=== PATIENT | female | born 2000 | race African-American/Black ===

== ENCOUNTER 2022-07-03 11:28 | Outpatient (CLI) | payer MEDICAID, SELFPAY ==
--- OUTSIDE RECORDS SUMMARY | 2022-07-04 03:12 | XMS_ITS ---
:2000 Author Organization [facility] ury Address [address] [place] [address] Care Team Providers Name Role Phone Jelena Frias Unavailable Unavailable PROBLEMS Unknown Problems ALLERGIES No Information IMMUNIZATIONS No Known Immunizations SOCIAL HISTORY Never Assessed REASON FOR REFERRAL FUNCTIONAL STATUS PLAN OF CARE VITAL SIGNS MEDICATIONS Unknown Medications PROCEDURES No Known procedures RESULTS No Results REASON FOR VISIT Insurance Providers [facility] Member Patient Patient Patient Patient Patient Subscriber Subscriber Subscriber Group Insurance Plan Plan Plan Plan ID Relationship Address Phone Name Date of ID Name Date of No Type Insurance Insurance Insurance Coverage to Subscriber Address Phone Name Dates Ucare [phone] Ucare self [place] [id number] [address] [id number] [place] [id number] 2021
== END 2022-07-03 11:29 | disposition home or self-care (01) ==
LOC: AMB 07-04 03:09
PROVIDERS: Visit Provider Emergency Medicine
DX: R45.851 Suicidal ideations (principal)
CPT/HCPCS: A0425; A0429

== ENCOUNTER 2022-07-03 11:47 | Emergency (ER) | payer MEDICAID, SELFPAY ==
[2022-07-03 12:00] VITALS: BP 126/94; PULSE 100; RESP 20; TEMP 36.1; O2SAT 95
--- NOTE | 2022-07-03 12:43 | ED_ITS ---
HPI - General Adult General Date Seen: 07/03/22 Chief complaint: Psychiatric Problem/Disorder Stated complaint: Mental Health Time Seen by Provider: 07/03/22 12:07 Source: patient Mode of arrival: ambulatory Limitations: no limitations History of Present Illness HPI narrative: Patient is a 22-year-old [employer] student here with concerns of depression and suicidality. She reports longstanding difficulties with depression. She has a psychiatrist who she has been seeing for a little under year. She is on multiple medications, recent diagnosis of ADD and addition of Adderall which she says has been somewhat helpful. Duloxetine was started about 4 days ago. She has a history of previous admissions for mental health. She is from [place], she has an aunt who she is somewhat close to but no other close family. She does have a friend [place] who she confides in. 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. She notes that she is having difficulty participating in classes because she has trouble getting out of bed. She is very tearful and verbose as she talks about her difficulties wanting to stay alive. She says she does not understand why she is being forced to stay alive when she very much does not want to be alive. She does not understand the point. She says that nothing ever gets any better. She thought that things would get better when she got out of the house and moved to college but she says nothing is better. Last night, she says that she was thinking about an overdose, she had been researching whether not she could overdose on her duloxetine but realized that s he only had a 30 day supply, and did not think that we 100 mg was enough. She became concerned that that would kill her but might only harm her and she did not want to take that risk. She does have a cat, she describes feeling like someone else would take better care of her cat. She describes having difficulty with even small daily cares such as showering and basic hygiene. Related Data Home Medications Medication Instructions Recorded Confirmed clonidine HCl 0.1 mg tablet mg 07/03/22 dextroamphetamine-amphetamine 10 07/03/22 mg tablet dextroamphetamine-amphetamine ER PO 07/03/22 15 mg 24hr capsule,extend release (Adderall XR) docusate sodium 100 mg capsule mg PO 07/03/22 duloxetine 20 mg capsule,delayed mg PO 07/03/22 release hydroxyzine HCl 25 mg tablet mg 07/03/22 lurasidone 20 mg tablet (Latuda) mg 07/03/22 norgestimate-ethinyl estradiol tab 07/03/22 0.18 mg/0.215mg/0.25mg-35 mcg(28)tablet (Tri-Estarylla) Allergies Allergy/AdvReac Type Severity Reaction Status Date / Time No Known Drug Allergies Allergy Verified 07/03/22 12:07 Review of Systems Status of ROS: Reports: 6 or more systems reviewed and unremarkable except as noted in History and below PFSH [facility] Social History Smoking Status: Never smoker Do you use any of these nicotine containing products: None Second hand tobacco smoke exposure: No How often do you have a drink containing alcohol: 2-4 times a month How many standard drinks containing alcohol do you have on a typical day: 3 or 4 How often do you have six or more drinks on one occasion: Never AUDIT-C Alcohol total score: 3 Non-prescribed substance use: marijuana (any form) Non-prescribed substance use details: smokes marijuana 3x/week service: No Exam Narrative: Exam Narrative: Vital signs as noted above. In general, an alert, tearful young woman. Minimal eye contact. She is in paper close, she is wearing a mask, within these boundaries, does appear well groomed. Head: Normocephalic, atraumatic. Eyes: Pupils are equal reactive. Extraocular movements are full. Conjunctivae are normal. ENT: Mucous membranes are moist. Throat is normal. Neck: Supple without lymphadenopathy. Heart: Regular rate and rhythm. No murmur or rub. Lungs: Clear bilaterally. No increased work of breathing, crackles or wheezes. Extremities: Well perfused. Neurologic: Patient is alert and oriented to person and place. Speech is fluent. Face is symmetric. Moves all extremities equally. Affect: Tearful. Skin: Warm and dry. Well perfused. Const: Vital Signs, click to edit/add: Vital Signs - 24 hr 07/03/22 12:00 Temperature 97 F L Pulse Rate [Pulse Oximeter] 100 Respiratory Rate 20 Blood Pressure [Le ft Upper Arm] 126/94 H Pulse Oximetry 95 Oxygen Delivery Me thod Room Air Documenting provider has reviewed patient's vital signs: yes Course Course Hospital Course: After speaking with the patient, my sense is that she has significant depression and at risk behaviors for suicidality. Will have her speak with telehealth as well. At this time, my sense is that she will likely need inpatient placement. Labs are notable for positive THC in the urine. She has positive amphetamines as well though she is on Adderall. Otherwise, CBC is normal, metabolic panel is unremarkable. UA is negative. test is negative. Alcohol, acetaminophen and salicylate negative. Patient has been cooperative and comfortable in the ER. She did speak with DEC was in agreement that an inpatient placement would be reasonable and appropriate at this time. Awaiting placement. Patient has been accepted at [facility]. Placed on a 72 hour hold per their request, but patient does agree with inpatient placement at this time. She also has given me permission to give an update to Kaur Eden, at [facility]. Awaiting transport. Vital Signs Vital signs: Initial Vital Signs Temperature 97 F L 07/03/22 12:00 Temperature Source Temporal Artery Scan 07/03/22 12:00 Pulse Rate 100 07/03/22 12:00 Pulse Rhythm 07/03/22 12:00 Respiratory Rate 20 07/03/22 12:00 Blood Pressure 126/94 H 07/03/22 12:00 Blood Pressure Mean 104 07/03/22 12:00 Blood Pressure Position Sitting 07/03/22 12:00 Pulse Oximetry 95 07/03/22 12:00 Oxygen Delivery Method 07/03/22 12:00 Vital Signs Temperature 97 F L 07/03/22 12:00 Pulse Rate 100 07/03/22 12:00 Respiratory Rate 20 07/03/22 12:00 Blood Pressure 126/94 H 07/03/22 12:00 Pulse Oximetry 95 07/03/22 12:00 Oxygen Delivery Method 07/03/22 12:00 Temperature 97 F L 07/03/22 12:00 Pulse Rate 100 07/03/22 12:00 Respiratory Rate 20 07/03/22 12:00 Blood Pressure 126/94 H 07/03/22 12:00 Pulse Oximetry 95 07/03/22 12:00 Oxygen Delivery Method 07/03/22 12:00 Medical Decision Making Lab Data Labs: Lab Results 07/03/22 07/03/22 07/03/22 Range/Units 13:10 13:10 13:10 WBC 5.20 (4.50-11.00) K/uL RBC 4.90 (4.00-5.20) m/uL Hgb 13.7 (12.0-16.0) gm/dL Hct 42.1 (33.0-51.0) % MCV 86 (80-100) fL MCH 28 (26-34) pg MCHC 33 (32-36) gm/dL RDW Coeff of Donnell 12.9 (11.5-15.5) % Plt Count 433 (140-440) K/uL Neut % (Auto) 44.4 (42.0-72.0) % Lymph % (Auto) 45.4 H (20-44) % Ramsey % (Auto) 8.8 (0.0-11.0) % Eos % (Auto) 0.8 (0.0-7.0) % Baso % (Auto) 0.4 (0.0-3.0) % Neut # (Auto) 2.31 (1.7-7.0) K/uL Lymph # (Auto) 2.40 (0.90-2.90) K/uL Ramsey # (Auto) 0.50 (0.00-0.90) K/UL Eos # (Auto) 0.04 (0.00-0.50) K/uL Baso # (Auto) 0.02 (0.00-0.30) K/uL Sodium 138 (135-149) mmol/L Potassium 4.0 (3.6-5.1) mmol/L Chloride 104 (96-114) mmol/L Carbon Dioxide 30 (20-32) mmol/L BUN 8 (5-24) mg/dL Creatinine 0.7 (0.5-1.5) mg/dL Estimated GFR 125 ml/min Glucose 115 (60-115) mg/dL Calcium 9.5 (8.4-10.6) mg/dL Urine Color Dark yellow (Yellow) Urine Appearance Slightly Cloudy A (Clear) Urine pH 7.0 (5.0-8.5) Ur Specific [place] 1.020 (1.000-1.030) Urine Protein Negative (Negative) Urine Glucose (UA) Negative (Negative) Urine Ketones Negative (Negative) Urine Blood Negative (Negative) Urine Nitrite Negative (Negative) Urine Bilirubin Negative (Negative) Urine Urobilinogen 0.2 (0.2-1.0) Ur Leukocyte Esterase Negative (Negative) Urine RBC 0-2 (0-2) Urine WBC 0-2 (0-5) Ur Squamous Epith Cells Moderate A (None-Few) Urine Bacteria Moderate A (None) Urine Mucus Few A (None) Urine HCG, Qual Negative (Negative) Salicylates (1.0-10) mg/dL Urine Opiates Screen (Negative) Ur Oxycodone Screen (Negative) Urine Methadone Screen (Negative) Ur Propoxyphene Screen (Negative) Acetaminophen < 10.0 L (10.0-30.0) ug/mL Ur Barbiturates Screen (Negative) U Tricyclic Antidepress (Negative) Ur Phencyclidine Scrn (Negative) Ur Amphetamines Screen (Negative) U Methamphetamines Scrn (Negative) U Benzodiazepines Scrn (Negative) Urine Cocaine Screen (Negative) U Marijuana (THC) Screen (Negative) Ur Drug Screen Comment Ethyl Alcohol (0.01-0.03) % SARS-CoV-2 (PCR) (Negative) 07/03/22 07/03/22 07/03/22 Range/Units 13:10 13:10 13:14 WBC (4.50-11.00) K/uL RBC (4.00-5.20) m/uL Hgb (12.0-16.0) gm/dL Hct (33.0-51.0) % MCV (80-100) fL MCH (26-34) pg MCHC (32-36) gm/dL RDW Coeff of Donnell (11.5-15.5) % Plt Count (140-440) K/uL Neut % (Auto) (42.0-72.0) % Lymph % (Auto) (20-44) % Ramsey % (Auto) (0.0-11.0) % Eos % (Auto) (0.0-7.0) % Baso % (Auto) (0.0-3.0) % Neut # (Auto) (1.7-7.0) K/uL Lymph # (Auto) (0.90-2.90) K/uL Ramsey # (Auto) (0.00-0.90) K/UL Eos # (Auto) (0.00-0.50) K/uL Baso # (Auto) (0.00-0.30) K/uL Sodium (135-149) mmol/L Potassium (3.6-5.1) mmol/L Chloride (96-114) mmol/L Carbon Dioxide (20-32) mmol/L BUN (5-24) mg/dL Creatinine (0.5-1.5) mg/dL Estimated GFR ml/min Glucose (60-115) mg/dL Calcium (8.4-10.6) mg/dL Urine Color (Yellow) Urine Appearance (Clear) Urine pH (5.0-8.5) Ur Specific [place] (1.000-1.030) Urine Protein (Negative) Urine Glucose (UA) (Negative) Urine Ketones (Negative) Urine Blood (Negative) Urine Nitrite (Negative) Urine Bilirubin (Negative) Urine Urobilinogen (0.2-1.0) Ur Leukocyte Esterase (Negative) Urine RBC (0-2) Urine WBC (0-5) Ur Squamous Epith Cells (None-Few) Urine Bacteria (None) Urine Mucus (None) Urine HCG, Qual (Negative) Salicylates < 1.0 L (1.0-10) mg/dL Urine Opiates Screen Negative (Negative) Ur Oxycodone Screen Negative (Negative) Urine Methadone Screen Negative (Negative) Ur Propoxyphene Screen Negative (Negative) Acetaminophen (10.0-30.0) ug/mL Ur Barbiturates Screen Negative (Negative) U Tricyclic Antidepress Negative (Negative) Ur Phencyclidine Scrn Negative (Negative) Ur Amphetamines Screen POSITIVE A* (Negative) U Methamphetamines Scrn Negative (Negative) U Benzodiazepines Scrn Negative (Negative) Urine Cocaine Screen Negative (Negative) U Marijuana (THC) Screen POSITIVE A* (Negative) Ur Drug Screen Comment See Note Ethyl Alcohol < 0.01 L (0.01-0.03) % SARS-CoV-2 (PCR) Negative SARS-CoV-2 (Negative) Discharge Plan Discharge Prescriptions: No Action clonidine HCl 0.1 mg tablet Label Comments: TAKE 1 TABLET BY MOUTH THREE TIMES DAILY dextroamphetamine-amphetamine 10 mg tablet Label Comments: TAKE 1 TABLET BY MOUTH EVERY DAY AT 1 PM docusate sodium 100 mg capsule PO norgestimate-ethinyl estradiol [Tri-Estarylla] 0.18/0.215/0.25 mg-35 mcg (28) tablet Label Comments: TAKE 1 TABLET BY MOUTH EVERY DAY FOR CONTROL hydroxyzine HCl 25 mg tablet Label Comments: TAKE 1 TO 2 TABLETS BY MOUTH EVERY 8 HOURS NEEDED FOR ANXIETY dextroamphetamine-amphetamine [Adderall XR] 15 mg capsule,extended release 24hr PO duloxetine 20 mg capsule,delayed release(DR/EC) PO Label Comments: TAKE 1 CAPSULE BY MOUTH EVERY DAY lurasidone [Latuda] 20 mg tablet
--- OUTSIDE RECORDS SUMMARY | 2022-07-03 12:48 | XMS_ITS ---
:2000 Author Organization [facility] ury Address [address] [place] [address] Care Team Providers Name Role Phone Jelena Frias Unavailable Unavailable PROBLEMS Unknown Problems ALLERGIES No Information IMMUNIZATIONS No Known Immunizations SOCIAL HISTORY Never Assessed REASON FOR REFERRAL FUNCTIONAL STATUS PLAN OF CARE VITAL SIGNS MEDICATIONS Unknown Medications PROCEDURES No Known procedures RESULTS No Results REASON FOR VISIT Insurance Providers [facility] Member Patient Patient Patient Patient Patient Subscriber Subscriber Subscriber Group Insurance Plan Plan Plan Plan ID Relationship Address Phone Name Date of ID Name Date of No Type Insurance Insurance Insurance Coverage to Subscriber Address Phone Name Dates Ucare [phone] U[employer] self [place] [id number] [address] [place] [id number] [place] [id number] 2021
--- OUTSIDE RECORDS SUMMARY | 2022-07-03 12:48 | XMS_ITS ---
:2000 Author Organization [facility] ury Address [address] [place] [address] Care Team Providers Name Role Phone Jelena Frias Unavailable Unavailable PROBLEMS Unknown Problems ALLERGIES No Information IMMUNIZATIONS No Known Immunizations SOCIAL HISTORY No smoking Hx information available REASON FOR REFERRAL FUNCTIONAL STATUS PLAN OF CARE VITAL SIGNS MEDICATIONS Unknown Medications PROCEDURES No Known procedures RESULTS No Results REASON FOR VISIT Insurance Providers
[2022-07-03 13:23] LABS: Basophils Absolute Auto 0.02 K/uL (0.00-0.30); Basophils Percent Auto 0.4 % (0.0-3.0); Eosinophils Absolute Auto 0.04 K/uL (0.00-0.50); Eosinophils Percent Auto 0.8 % (0.0-7.0); Hematocrit 42.1 % (33.0-51.0); Hemoglobin* 13.7 gm/dL (12.0-16.0); Immature Granulocytes Abs Auto 0.01 K/uL (0.00-0.30); Immature Granulocytes Pct Auto 0.2 %; Lymphocytes Percent Auto 45.4 % (20-44); Mean Corpuscular HGB Conc 33 gm/dL (32-36); Mean Corpuscular Hemoglobin 28 pg (26-34); Mean Corpuscular Volume 86 fL (80-100); Monocytes Percent Auto 8.8 % (0.0-11.0); Neutrophils Absolute Auto 2.31 K/uL (1.7-7.0); Neutrophils Percent Auto 44.4 % (42.0-72.0); Platelet Count* 433 K/uL (140-440); RDW Coefficient of Variation % 12.9 % (11.5-15.5)
[2022-07-03 13:24] LABS: Appearance Urine Slightly Cloudy (Clear); Bilirubin Urine Negative (Negative); Blood Urine Negative (Negative); Color Urine Dark yellow (Yellow); Glucose Urine Negative (Negative); Ketones Urine Negative (Negative); Leukocyte Esterase Urine Negative (Negative); Nitrite Urine Negative (Negative); Protein Urine Negative (Negative); Urobilinogen Urine 0.2 (0.2-1.0)
[2022-07-03 13:29] LABS: Slide Review Reflex No
[2022-07-03 13:31] LABS: Barbiturate Screen Urine Negative (Negative); Benzodiazepines Screen Urine Negative (Negative); Cocaine Screen Urine Negative (Negative); Methadone Screen Urine Negative (Negative); Methamphetamines Screen Urine Negative (Negative); Opiate Screen Urine Negative (Negative); Oxycodone Screen Urine Negative (Negative); Phencyclidine Screen Urine Negative (Negative); Tricyclic Antidepressant Urine Negative (Negative)
[2022-07-03 13:33] LABS: Bacteria Urine Moderate; RBC Urine 0-2 (0-2); Squamous Epithelial Cell Urine Moderate (None-Few); WBC Urine 0-2 (0-5)
[2022-07-03 13:34] LABS: Mucus Urine Few; Ur HCG Qualitative* Negative (Negative)
[2022-07-03 13:38] LABS: Amphetamine Screen Urine POSITIVE (Negative); Cannabinoid Screen Urine POSITIVE (Negative)
[2022-07-03 13:44] LABS: Chloride* 104 mmol/L (96-114); Sodium* 138 mmol/L (135-149)
[2022-07-03 13:46] LABS: Creatinine* 0.7 mg/dL (0.5-1.5); Estimated Glomerular Filt Rate 125 ml/min
[2022-07-03 13:47] LABS: Blood Urea Nitrogen* 8 mg/dL (5-24); Calcium* 9.5 mg/dL (8.4-10.6); Carbon Dioxide* 30 mmol/L (20-32); Glucose* 115 mg/dL (60-115)
[2022-07-03 13:48] LABS: Acetaminophen* < 10.0 ug/mL (10.0-30.0)
[2022-07-03 13:51] LABS: SARS PCR* Negative SARS-CoV-2 (Negative)
[2022-07-03 13:52] LABS: Ethanol* < 0.01 % (0.01-0.03); Salicylate* < 1.0 mg/dL (1.0-10)
--- NOTE | 2022-07-03 20:24 | ED.NURSE ---
[facility] accepts patient. They are requesting a [address]hr hold. [address] melgar notified.
[2022-07-03] MEDS: ACETAMINOPHEN 500 MG TABLET 1000 MG PO (21:34)
[2022-07-03] MEDS: hydrOXYzine pamoate 25 MG CAPSULE PO (21:34)
--- NOTE | 2022-07-03 22:01 | ED.NURSE ---
Patient requested Tylenol for headache and hydroxyzine for sleep. She was updated about transfer to [place] and is calm and cooperative.
--- NOTE | 2022-07-03 22:06 | ED.NURSE ---
Spoke with accepting unit at [facility] and gave update on delay due to EMS availability. [place] [facility] RN to call tomorrow with updated ETA to phone # [phone]
[2022-07-03 23:12] VITALS: BP 113/88; PULSE 73; TEMP 36.9; O2SAT 97
--- NOTE | 2022-07-03 23:58 | ED.NURSE ---
Patient will transport with [facility] to [facility] updated with new ETA.
== END 2022-07-04 00:34 ==
LOC: ED 12:47
PROVIDERS: Emergency Provider Emergency Medicine
DX: R45.851 Suicidal ideations (principal); F32.A Depression, unspecified
CPT/HCPCS: 36415; 80048; 80143; 80179; 80306; 81001; 81025; 82077; 85025; 87086; 87635; 99284; 99285; A9270